=== PATIENT | female | born 1955 | race Caucasian/White ===

== ENCOUNTER 2020-01-29 10:57 | Observation (INO) | payer MEDICARE, OTHER ==
[2020-01-29] VITALS (12 sets, daily range): BP systolic 119–179; BP diastolic 54–96; Ht 167.6 cm; Wt 81.8 kg
[~2020-01-29] VITALS: Ht 167.6 cm; Wt 81.8 kg
[2020-01-29] MEDS ORDERED: NEURONTIN 400400 MG PO (11:04)
[2020-01-29] MEDS ORDERED: OMEPRAZOLE20 M1 PO (11:04)
[2020-01-29] MEDS ORDERED: LEXAPRO10 MG PO (11:04)
--- NOTE | 2020-01-29 13:20 | NUR ---
AT [facility]. CONSENTS SIGNED FOR MODERATE SEDATION. VERBAL ORDER FOR 2MG VERSED GIVEN TO NURSE. NURSE ADMINISTERED MEDICATION. DR. FLOREZ DECIDED TO SPLINT INJURY AND NOT REDUCE. PT LYING SUPINE IN BED, ON EDUCATION DIAGNOSTICIAN, AT BEDSIDE. NO ACUTE DISTRESS NOTED, WILL CONTINUE TO MONITOR. SEE MODERATE SEDATION PAPERWORK.
[2020-01-29 14:24] LABS: APTT 26.5 SECONDS (22.8-39.4); INR 0.96 (0.85-1.17); PROTIME 12.8 SECONDS (11.6-15.0)
[2020-01-29 14:25] LABS: CALC OSMOLALITY 284 mosm/kg (275-300); CARBON DIOXIDE 26.4 mmol/L (21.0-32.0); CHLORIDE - SERUM 108 mmol/L (98-107); CREATININE - SERUM 0.8 mg/dL (0.6-1.3); GLUCOSE 108 mg/dL (74-106); POTASSIUM - SERUM 4.1 mmol/L (3.5-5.1); SODIUM 142 mmol/L (136-145); UREA NITROGEN 16 mg/dL (7-18); eGFR NON AFRICAN AMERICAN 76 mL/min (90-120)
[2020-01-29 14:32] LABS: ALBUMIN 3.6 g/dL (3.4-5.0); ALKALINE PHOSPHATASE 100 U/L (30-120); ALT (SGPT) 24 U/L (10-68)
[2020-01-29 14:37] LABS: BASOPHILS 0.2 % (0-2); EOSINOPHILS 0.1 % (0-7); HEMATOCRIT 39.1 % (36.0-48.0); HEMOGLOBIN 12.8 g/dL (12-16); IMMATURE GRANULOCYTES 0.3 % (0-5); MCH 29.4 pg (26.0-34.0); MCHC 32.7 g/dL (31.0-37.0); MCV 89.9 fL (80.0-100.0); MEAN PLATELET VOLUME 9.5 fL (7.4-10.4); MONOCYTES 4.6 % (2-11); NEUTROPHILS 85.8 % (40-80); PLATELET COUNT 277 10x3/uL (130-400); RBC 4.35 10x6/uL (4.00-5.40); RDW 13.6 % (11.5-14.5); WBC 14.1 10x3/uL (4.8-10.8)
--- NOTE | 2020-01-29 19:42 | NUR ---
PLASMA BLADE SET TO 6/8 BOVIE PAD RIGHT THIGH [id number] EXP 07/07/21
[2020-01-29] MEDS ORDERED: VISTARIL50 MG PO (20:36)
[2020-01-29] MEDS ORDERED: OXYCODONE HCL5 M1 PO (20:36)
[2020-01-29] MEDS ORDERED: KEFLEX500 MG PO (20:37)
[2020-01-29] MEDS ORDERED: ZOFRAN ODT4 MG/UDTAB PO (20:37)
--- NOTE | 2020-01-29 22:00 | NUR ---
RECIEVED TO ROOM FROM RECOVERY, ALERT AND ORIENTIATED, LEFT ARM IN SILING WITH HOMERO WRAP IN PLACE, DENIES PAIN REPORTS FINGERS FEEL JERMAINE, ABLE TO MOVE SLIGHTLY, SEE ASSESSMENT, CALL LIGHT IN REACH
[2020-01-30] VITALS: BP 117/46; BP 144/63
[2020-01-30 01:00] VITALS: BP 112/52
[2020-01-30 04:00] VITALS: BP 110/62
[2020-01-30 04:59] LABS: BASOPHILS 0 % (0-2); EOSINOPHILS 0 % (0-7); HEMATOCRIT 35.2 % (36.0-48.0); HEMOGLOBIN 11.4 g/dL (12-16); IMMATURE GRANULOCYTES 0.1 % (0-5); LYMPHOCYTES 10.8 % (15-50); MCH 29.2 pg (26.0-34.0); MCHC 32.4 g/dL (31.0-37.0); MCV 90.3 fL (80.0-100.0); MEAN PLATELET VOLUME 9.5 fL (7.4-10.4); MONOCYTES 2.1 % (2-11); PLATELET COUNT 253 10x3/uL (130-400); RDW 14.2 % (11.5-14.5)
[2020-01-30 05:04] LABS: WBC 9.6 10x3/uL (4.8-10.8)
[2020-01-30 05:16] LABS: ALBUMIN 2.9 g/dL (3.4-5.0); BILIRUBIN - TOTAL 0.37 mg/dL (0.2-1.3); CALCIUM 8.1 mg/dL (8.5-10.1); CARBON DIOXIDE 25.2 mmol/L (21.0-32.0); POTASSIUM - SERUM 4.2 mmol/L (3.5-5.1); PROTEIN - SERUM 6.2 g/dL (6.4-8.2)
[2020-01-30 05:18] LABS: CREATININE - SERUM 1.2 mg/dL (0.6-1.3)
[2020-01-30 07:58] VITALS: BP 110/62
--- NOTE | 2020-01-30 08:45 | NUR ---
PT RESTING IN BED WITH HOB 30 DEGREES. ABRASION NOTED TO FOREHEAD. SUTURES INTACT TO BRIDGE OF NOSE. SITES WITHOUT REDNESS EDEMA OR DRAINAGE. SLING TO LEFT ARM, DRESSING C/D/I TO LEFT UPPER EXTREMITY. EXTREMITY WARM TO TOUCH. PT REMAINS UNABLE TO MOVE THUMB AND FIRST FINGER, VOICES FEELING TINGLY. IV TO RIGHT HAND WITH 1/2 NS @ 125ML/HR INFUSING VIA PUMP. DENIES PAIN AT THIS TIME. DENIES FURTHER NEEDS AT THIS TIME. CL WITHIN REACH. ENCOURAGED TO CALL WITH NEEDS. CONTINUE POC
[2020-01-30 12:24] VITALS: BP 109/51
--- NOTE | 2020-01-30 16:15 | MORECARE ---
CASE MANAGEMENT DISCHARGE SUMMARY PATIENT: JADON MIGUEL UNIT: [id number] ADM DATE: 01/29/20 AGE: 64 : 51 SEX: F ROOM/BED: D.2226 AUTHOR: ADEOLA,DOC PHYSICIAN: REFERRING PHYSICIAN: SHELTON CALERO MD DATE OF SERVICE: 01/30/20 Discharge Plan Patient Name: JADON MIGUEL Facility: [facility]:[place] : 1955 Planned Disposition: Home Anticipated Discharge Date: 01/30/20 Discharge Date: 01/30/2020 Expected LOS: 1 Initial Reviewer: [email or web address] Initial Review Date: 01/29/2020 Generated: 01/30/20 5:15 pm Comments DCP- Discharge Planning Updated by [email or web address]: Emmy Bass on 01/30/20 3:[address] PATIENT OBTAINED X/R DISC PRIOR TO DISCHARGE FOR HER PCP. DCP- Discharge Planning Updated by [email or web address]: Emmy Bass on 01/30/20 9:[address] CM SPOKE WITH THE PATIENT THIS AM. SHE GAVE VERBALLY PERMISSION TO PROCEED WITH THE ASSESSMENT. SHE IS FAIRLY COMFORTABLE, STATES "BLOCK HAS NOT WORN OFF YET." THE PATIENT AND HER ARE CAMPING IN [place]. THEY GENERALLY VISIT IN JANUARY TO GET AWAY FROM THE COLD [place]ATHER IN [place]. THE CAMPER HAS THREE STEPS W/ A RAIL TO ENTER. SHE STATES THE DOOR TO ENTER THE CAMPER IS WIDE. SHE HAD OXYGEN BUT IT WAS DISCONTINUED AT APPROXIMATELY 0600 THIS AM. SHE STATES SHE IS DOING WELL WITHOUT IT. SHE DENIES ANY OTHER DME AT THIS TIME. P[place]- [place]. [address]. PHARMACY- SHE STATES SHE HAS [facility] FOR HER MEDICATIONS. SHE STATES HER WILL BE ASSISTING HER. CM EXPLAINED CASE MANAGEMENT IS AVAILABLE TO ASSIST W/ DISCHARGE PLANNING NEEDS IE. HEALTH CARE SERVICE PROVIDERS AND EQUIPMENT NEEDS. EXPLAINED CM WILL FOLLOW TO ASSIST WITH ANY NEEDS AT DISCHARGE. DCPIA - Discharge Planning Initial Assessment Updated by [id number]: Emmy Bass on 01/30/20 4:12 pm * Is the patient Alert and Oriented? Yes * How many steps to enter\\exit or inside your home? three * PCP DR LOGAN DAWSON [place] [phone] * Pharmacy [facility] * Preadmission Environment Home with Family * ADLs Independent * Equipment None * Other Equipment N/A * List name and contact numbers for known caregivers / representatives who currently or will assist patient after discharge: RACHID MIGUEL- SPOUSE- [phone] * Verbal permission to speak to the caregivers and representatives has been obtained from the patient. No * Community resources currently utilized None * Please name any agencies selected above. N/A * Additional services required to return to the preadmission environment? No * Can the patient safely return to the preadmission environment? Yes * Has this patient been hospitalized within the prior 30 days at any hospital? No Patient Name: JADON MIGUEL Page [id number] at 1615 All edits/amendments must be made on the electronic document DICTATION DATE: 01/30/20 1615 SERVICENOW ADMINISTRATOR DEVELOPER: FERNANDO 01/30/20 1615 RPT#: [id number] DC DATE:01/30/20 STATUS: DIS IN [facility] [address] [place] [address] END OF REPORT
--- NOTE | 2020-02-01 08:33 | OP ---
PATIENT NAME: JADON MIGUEL MEDICAL RECORD: [id number] :51 LOCATION:D.[facility] [id number] ADMISSION DATE:01/29/20 SURGEON: FERNANDO FLOREZ, DATE OF OPERATION: 01/29/2020 PROCEDURE PERFORMED: Left olecranon open reduction and internal fixation of elbow joint reduction, lateral ligament repair of the left elbow, also with a 3 cm facial laceration repair. PREOPERATIVE DIAGNOSES: Left Monteggia fracture or olecranon fracture with dislocation of radius and lateral epicondyle fracture of the left distal humerus and a facial laceration. POSTOPERATIVE DIAGNOSES: Left Monteggia fracture or olecranon fracture with dislocation of radius and lateral epicondyle fracture of the left distal humerus and a facial laceration. INDICATIONS: Ms. Miguel is a 64-year-old female who fell on a golf course today onto her left elbow, sustaining a Monteggia fracture and also fractured the fragments off of the lateral epicondyle of her elbow. She also sustained a nose laceration or face lacerations, a three-sided laceration, 1 cm each, on each side. She was taken to the ER, seen there, and seen that she had a fracture dislocation of the left elbow. I told her we could get it fixed today and warned her of the risks including infection, bleeding, damage to the ulnar and radial nerves, median nerve as well all the nerves about the elbow, continued pain, malunion, nonunion, loss of motion of the elbow and she signed the consent and also I told her I would suture the laceration on her face while she was under she was okay with that and signed the consent. She was then given a block by anesthesia in the preoperative area. DESCRIPTION OF PROCEDURE: The patient was given a block by anesthesia in the preoperative area, given 2 grams of Ancef, taken to the operative suite, laid in the right lateral decubitus position with the left arm up. The left arm was then prepped and draped in sterile fashion. She had been sedated and intubated. Prior to this, the left arm was then prepped and draped in sterile fashion. Timeout was performed, everyone was in agreeance with the correct side, site, patient, and procedure. I then began by exsanguinating the left upper extremity with an Esmarch and tourniquet was inflated to 250 mmHg, it was up for 64 minutes. I began with an incision over the olecranon curving it radially at the elbow and then straight down the shaft. Careful dissection was made down to the olecranon and ulna and a reduction was made. The plate was put on and once this was seen to be in good position on AP and lateral, I compressed the fracture site and then we filled some of the screw holes in an all locking except for one. The attention was then drawn to the radial head, dislocated, had been reduced prior to plating the ulna and reduced it and saw the fragments off the lateral epicondyle of the humerus. I got an x-ray to confirm the position of the anchor, Juggerloc anchor, 2.9 double-loaded anchor and then inserted into the humerus. We then sutured in a horizontal mattress fashion through the collateral ligament and through the bone fragments, it had come off and sutured them down to the fracture site of the distal humerus on the lateral aspect. This kept the radial head, reduced very well and was ranged under fluoroscopy in supination and pronation and did not dislocate and was confirmed to be in good position on lateral and AP. The tourniquet was then let down and the site was thoroughly irrigated, it was then closed with 2-0 Vicryl in an inverted interrupted fashion and a ZipLine was placed on the elbow around the incision. OPERATIVE REPORT [id number] JADON MIGUEL She was then dressed with Adaptic, 4 x 4s, ABD, cast padding and a 4 x 30 posterior splint was applied and secured with an Darrian wrap. Attention was then drawn to the facial laceration as the patient was repositioned in the supine position. The laceration was cleaned with Betadine and then I closed it with 8 simple interrupted sutures using 5-0 chromic. She was then awakened and taken to recovery in stable condition. BLOOD LOSS: Approximately 15 mL. COMPLICATIONS: None. TRANSINT:[id number] Voice Confirmation ID: [id number] DOCUMENT ID: [id number] FERNANDO FLOREZ DO at 0833 CC: [id number] DICTATION DATE: 01/29/202121 KOSHER INSPECTOR: 01/30/20 0837 DIS IN 01/30/20 [facility] [address] [place] [address]
== END 2020-01-30 14:51 | disposition home or self-care (01) ==
LOC: D.ER 10:57 → D.MS 13:09 → OBSVTIME 13:09 → D.MS 01-30 14:51
PROVIDERS: Family Medicine; ADMIT Emergency Medicine; ATTEND Emergency Medicine
DX: S52.202A Unspecified fracture of shaft of left ulna, initial encounter for closed fracture (principal); S01.81XA Laceration without foreign body of other part of head, initial encounter; S42.432A Displaced fracture (avulsion) of lateral epicondyle of left humerus, initial encounter for closed fracture; W19.XXXA Unspecified fall, initial encounter; E66.9 Obesity, unspecified